=== PATIENT | male | born 1985 | race Two or more races ===

== ENCOUNTER 2019-06-10 17:43 | Inpatient (IN) | payer MEDICAID, OTHER ==
[~2019-06-10] VITALS: Ht 182.9 cm; Wt 74.8 kg
[2019-06-10 20:01] LABS: BASOPHILS % 0.7 % (0.0-2.0); CLARITY URINE CLEAR (CLEAR); COLOR URINE YELLOW (YELLOW); EOSINOPHILS % 0.7 % (0.0-5.0); HEMATOCRIT. 45.6 % (42.0-52.0); HEMOGLOBIN. 15.9 g/dL (14.0-18.0); KETONES URINE NEGATIVE (NEGATIVE); LEUKOCYTE ESTERASE URINE NEGATIVE (NEGATIVE); LYMPHOCYTES % 21.9 % (20.0-50.0); MEAN CORPUSCULAR HEMOGLOBIN 33.4 pg (28.0-32.0); MEAN CORPUSCULAR VOLUME 95.7 fL (80.0-94.0); MEAN PLATELET VOLUME 8.9 fl (7.4-10.4); MONOCYTES % 9.4 % (2.0-8.0); NEUTROPHILS % 67.3 % (40.0-76.0); NITRITE URINE NEGATIVE (NEGATIVE); OCCULT BLOOD URINE NEGATIVE (NEGATIVE); PLATELET 225 x1000/uL (130-400); PROTEIN URINE NEGATIVE (NEGATIVE); RED BLOOD CELL COUNT 4.76 mill/uL (4.7-6.1); RED CELL DISTRIBUTION WIDTH 12.8 % (11.6-14.6); SPECIFIC GRAVITY URINE 1.002 (1.005-1.030); UROBILINOGEN URINE 0.2 E.U./dL (0.2-1.0)
[2019-06-10 20:05] LABS: CHLORIDE 102 mEq/L (98-107)
[2019-06-10 20:10] LABS: ETHANOL BLOOD < 10 mg/dL; PROTHROMBIN TIME 10.8 sec (9.6-11.0)
[2019-06-10 20:12] LABS: LDL CHOLESTEROL 76 mg/dL (5-100)
[2019-06-10 20:14] LABS: *AMPHETAMINES SCREEN URINE NEGATIVE (NEGATIVE); *BARBITURATES SCREEN URINE NEGATIVE (NEGATIVE); *BENZODIAZEPINES SCREEN URINE NEGATIVE (NEGATIVE); *COCAINE SCREEN URINE PRESUMTIVE POSITIVE (NEGATIVE)
[2019-06-10 20:15] LABS: CANNABINOID URINE SCREEN NEGATIVE (NEGATIVE); METHADONE URINE SCREEN NEGATIVE (NEGATIVE); OPIATES URINE SCREEN NEGATIVE (NEGATIVE); PHENCYCLIDINE URINE SCREEN NEGATIVE (NEGATIVE)
[2019-06-10] MEDS ORDERED: SODIUM CHLORIDE 0.9% 1,000 ML IV ONE (20:46)
[2019-06-10] MEDS ORDERED: ASPIRIN 325MG EC TABLET PO ONE (21:00)
[2019-06-10] MEDS ORDERED: CLONIDINE 0.1MG TABLET PO PRN (21:45)
[2019-06-10] MEDS ORDERED: ACETAMINOPHEN 325MG TABLET PO PRN (21:45)
[2019-06-10] MEDS ORDERED: ONDANSETRON HCL 4MG/2ML INJ IV PRN (21:45)
[2019-06-10] MEDS ORDERED: ATORVASTATIN CALCIUM 40MG TABLET PO ONE (21:45)
[2019-06-10] MEDS ORDERED: HYDRALAZINE 20MG/ML VIAL IV PRN (21:45)
[2019-06-11 00:20] VITALS: BP 118/68
[2019-06-11 04:00] VITALS: BP 99/57
[2019-06-11 06:36] LABS: CHLORIDE 108 mEq/L (98-107)
[2019-06-11 06:37] LABS: BASOPHILS % 0.7 % (0.0-2.0); EOSINOPHILS % 3.3 % (0.0-5.0); HEMATOCRIT. 43.6 % (42.0-52.0); HEMOGLOBIN. 15.4 g/dL (14.0-18.0); LYMPHOCYTES % 42.5 % (20.0-50.0); MEAN CORPUSCULAR HEMOGLOBIN 33.9 pg (28.0-32.0); MEAN CORPUSCULAR VOLUME 95.8 fL (80.0-94.0); MONOCYTES % 10.6 % (2.0-8.0); NEUTROPHILS % 42.9 % (40.0-76.0); PLATELET 212 x1000/uL (130-400); RED BLOOD CELL COUNT 4.55 mill/uL (4.7-6.1); RED CELL DISTRIBUTION WIDTH 12.8 % (11.6-14.6)
[2019-06-11 06:43] LABS: LDL CHOLESTEROL 66 mg/dL (5-100)
[2019-06-11 06:45] LABS: HDL CHOLESTEROL 62 mg/dL (40-59)
[2019-06-11 08:08] VITALS: BP 110/59
[2019-06-11 12:00] VITALS: BP 116/64
[2019-06-11] MEDS ORDERED: HEPARIN 5000 UNITS/ML VIAL SUBCUT SCH (22:00)
== END 2019-06-11 15:55 | disposition home or self-care (01) | DRG 47 ==
LOC: ER 17:43 → 7WST 21:10 → EDBEDREQ 21:12 → EDBEDREQTM 21:12 → EDBEDREQSVC 21:12 → ENRESERV 21:59
PROVIDERS: ADMIT Internal Medicine; ATTEND Internal Medicine
DX: G45.9 Transient cerebral ischemic attack, unspecified (principal); E11.9 Type 2 diabetes mellitus without complications; F14.10 Cocaine abuse, uncomplicated; F17.200 Nicotine dependence, unspecified, uncomplicated; H53.8 Other visual disturbances; F10.10 Alcohol abuse, uncomplicated; Z91.14 Patient's other noncompliance with medication regimen
CPT/HCPCS: 36415; 70544; 70553; 71045; 80053; 80061; 80305; 80320; 81003; 82962; 83036; 83721; 83735; 84484; 85025; 93005; 93306; 93880; 97162; 97165; 99291; G0480